=== PATIENT | male | born 1960 | race African-American/Black ===

== ENCOUNTER 2016-12-20 14:10 | Emergency (ER) | payer MEDICAID ==
[~2016-12-20] VITALS: Ht 172.7 cm; Wt 77.0 kg
[2016-12-20 14:38] VITALS: BP 131/87
== END 2016-12-20 20:32 | disposition home or self-care (01) ==
LOC: ER 14:11
DX: M54.5 Low back pain (principal); M54.6 Pain in thoracic spine; M54.2 Cervicalgia; R03.0 Elevated blood-pressure reading, without diagnosis of hypertension; V43.52XA Car driver injured in collision with other type car in traffic accident, initial encounter; Y93.89 Activity, other specified; Y92.488 Other paved roadways as the place of occurrence of the external cause
CPT/HCPCS: 99282; 99283